=== PATIENT | female | born 1960 | race Caucasian/White ===

== ENCOUNTER → 2017-10-29 | Outpatient (CLI) | payer BC ==
[2017-10-29 14:50] LABS: Free Thyroxine 0.86 ng/dL (0.70-1.60)
[2017-10-29 14:55] LABS: Thyroid Stimulating Hormone 1.29 uIU/mL (0.360-4.800)
== END | disposition home or self-care (01) ==
LOC: LAB 14:21 → LAB SHORT 14:21
PROVIDERS: Hospitalist
DX: R61 Generalized hyperhidrosis (principal)
CPT/HCPCS: 84439; 84443

== ENCOUNTER → 2019-07-04 | Outpatient (CLI) | payer BC | END | disposition home or self-care (01) | LOC: LAB SHORT 13:44 → LAB 13:44 | DX: N39.0 Urinary tract infection, site not specified (principal) | CPT/HCPCS: 87086 ==

== ENCOUNTER → 2022-03-05 | Outpatient (CLI) | payer BC ==
[2022-03-05 15:21] LABS: BASOPHILS ABSOLUTE AUTO 0.05 K/mm3 (0.00-0.23); BASOPHILS PERCENT AUTO 1 % (0-2); EOSINOPHILS ABSOLUTE AUTO 0.08 K/mm3 (0.00-0.68); EOSINOPHILS PERCENT AUTO 1 % (0-6); Hematocrit 38.4 % (33.0-51.0); Hemoglobin 12.4 g/dL (11.5-16.0); IMMATURE GRAN ABSOLUTE AUTO 0.01 K/mm3 (0.00-0.10); IMMATURE GRAN PERCENT AUTO 0 % (0-1); LYMPHOCYTES ABSOLUTE AUTO 1.95 K/mm3 (0.84-5.20); LYMPHOCYTES PERCENT AUTO 35 % (21-46); MONOCYTES PERCENT AUTO 7 % (4-13); Mean Corpuscular HGB Conc 32.3 g/dL (31.5-36.5); Mean Corpuscular Volume 84 fL (80-100); Mean Platelet Volume 10.5 fL (9.1-12.4); NEUTROPHILS ABSOLUTE AUTO 3.04 K/mm3 (1.96-9.15); NEUTROPHILS PERCENT AUTO 55 % (41-73); Platelet Count 357 K/mm3 (150-400); RDW Coefficient Variation 13.7 % (11.7-14.2); RDW Standard Deviation 41.4 fL (35.1-46.3); White Blood Cell Count 5.53 K/mm3 (4.00-11.30)
[2022-03-05 15:39] LABS: Alanine Aminotransfer (ALT/SGP 33 U/L (12-78); Albumin, Blood 4.1 g/dL (3.4-5.0); Albumin/Globulin Ratio 1.2 (0.8-1.8); Alk Phos 73 U/L (50-136); Anion Gap 6 mmol/L (6-16); Aspartate Aminotrans (AST/SGOT 18 U/L (12-37); Bilirubin, Total 0.3 mg/dL (0.1-1.0); Blood Urea Nitrogen 10 mg/dL (8-24); Bun/Creatinine Ratio 12.9 (12.0-20.0); CHOL/HDL RATIO 3.4; CO2, Blood 29 mmol/L (21-32); Calcium, Blood 9.5 mg/dL (8.5-10.1); Chloride, Blood 102 mmol/L (98-108); Cholesterol 203 mg/dL (50-200); Creatinine, Blood 0.77 mg/dL (0.40-1.00); Globulin, Blood 3.4 g/dL (2.2-4.0); Glomerular Filtration Rate 89 (60-); Glucose, Blood 109 mg/dL (70-99); HDL Cholesterol 59 mg/dL (>39); LDL/HDL RATIO 1.9; Low Density Lipoprotein Chol 110 mg/dL (0-110); Potassium, Blood 4.1 mmol/L (3.5-5.5); Sodium, Blood 137 mmol/L (136-145); Total Protein, Blood 7.5 g/dL (6.4-8.2); Triglycerides 172 mg/dL (30-160); Very Low Density Lipoprot Chol 34 mg/dL (6-32)
== END | disposition home or self-care (01) ==
LOC: LAB SHORT 11:35 → LAB 11:35
PROVIDERS: Hospitalist
DX: E78.5 Hyperlipidemia, unspecified (principal); I10 Essential (primary) hypertension
CPT/HCPCS: 80053; 80061; 85025

== ENCOUNTER → 2022-12-15 | Outpatient (CLI) | payer BC ==
[~2022-12-15] MED LIST: DULOXETINE HCL60 M1 PO; HYDHCL25 PO; LORA10ER PO; LOVASTATIN20 MG PO; Neurontin 100100 MG PO; Prinivil10 MG PO
[2022-12-15 19:02] LABS: BASOPHILS ABSOLUTE AUTO 0.03 K/mm3 (0.00-0.23); BASOPHILS PERCENT AUTO 0 % (0-2); EOSINOPHILS ABSOLUTE AUTO 0.09 K/mm3 (0.00-0.68); EOSINOPHILS PERCENT AUTO 1 % (0-6); Hemoglobin 12.7 g/dL (11.5-16.0); IMMATURE GRAN ABSOLUTE AUTO 0.02 K/mm3 (0.00-0.10); IMMATURE GRAN PERCENT AUTO 0 % (0-1); LYMPHOCYTES ABSOLUTE AUTO 2.71 K/mm3 (0.84-5.20); LYMPHOCYTES PERCENT AUTO 37 % (21-46); MONOCYTES PERCENT AUTO 8 % (4-13); Mean Corpuscular HGB Conc 32.6 g/dL (31.5-36.5); Mean Corpuscular Volume 83 fL (80-100); NEUTROPHILS ABSOLUTE AUTO 3.91 K/mm3 (1.96-9.15); NEUTROPHILS PERCENT AUTO 53 % (41-73); Platelet Count 376 K/mm3 (150-400); RDW Coefficient Variation 13.1 % (11.7-14.2); RDW Standard Deviation 39.7 fL (35.1-46.3); Red Blood Cell Count 4.71 M/mm3 (3.80-5.20); White Blood Cell Count 7.36 K/mm3 (4.00-11.30)
[2022-12-15 19:51] LABS: Bun/Creatinine Ratio 17.1 (12.0-20.0); Calcium, Blood 9.7 mg/dL (8.5-10.1); Creatinine, Blood 0.82 mg/dL (0.40-1.00)
== END | disposition home or self-care (01) ==
LOC: LAB 15:54 → LAB SHORT 15:54
PROVIDERS: Hospitalist
DX: R51.9 Headache, unspecified (principal)
CPT/HCPCS: 80048; 85025; 85651

== ENCOUNTER 2022-12-17 09:29 | Emergency (ER) | payer BC ==
[~2022-12-17] VITALS: Ht 165.1 cm; Wt 89.4 kg
[2022-12-17] MEDS ORDERED: LOVASTATIN20 MG PO (09:55)
[2022-12-17] MEDS ORDERED: DULOXETINE HCL60 M1 PO (09:55)
[2022-12-17] MEDS ORDERED: Prinivil10 MG PO (09:56)
[2022-12-17] MEDS ORDERED: LORA10ER PO (10:37)
[2022-12-17 11:54] VITALS: BP 114/75
[2022-12-17] MEDS ORDERED: HYDHCL25 PO (12:48)
[2022-12-17] MEDS ORDERED: Neurontin 100100 MG PO (12:48)
== END 2022-12-17 13:10 | disposition home or self-care (01) ==
LOC: ER 09:29
DX: G43.909 Migraine, unspecified, not intractable, without status migrainosus (principal); M54.2 Cervicalgia; F41.9 Anxiety disorder, unspecified; R41.89 Other symptoms and signs involving cognitive functions and awareness; R00.2 Palpitations; I10 Essential (primary) hypertension; Z88.1 Allergy status to other antibiotic agents; Z91.040 Latex allergy status
CPT/HCPCS: 84443; 93005; 93010; 96374; 96375; 99284-25; A9270; J1200; J1885; J2765

== ENCOUNTER 2023-07-10 06:50 | Day surgery (SDC) | payer BC ==
[~2023-07-10] VITALS: Ht 167.6 cm; Wt 89.5 kg
[~2023-07-10 06:50] MED LIST changes: +ALBU90OI INH; +ALLEGRA ALLERG180 MG PO; +CYCL10; +ERGO400 PO; +FLONASE ALLERG9.9 M2; +GABA300 PO; +SUPHEDRINE SINU PO
[2023-07-10] MEDS ORDERED: propofoL 50 ML IV ONE (07:36)
[2023-07-10] MEDS ORDERED: Lactated Ringer's 1,000 ML IV ONE ×2 (07:36→07:43)
[2023-07-10 09:17] VITALS: BP 143/83
== END 2023-07-10 09:10 | disposition home or self-care (01) ==
LOC: ORSCSDS 06:50
PROVIDERS: Surgery
PROC: 0DJD8ZZ Inspection of Lower Intestinal Tract, Via Natural or Artificial Opening Endoscopic (ICD-10-PCS; principal; 2023-07-10 08:00)
DX: Z12.11 Encounter for screening for malignant neoplasm of colon (principal); J45.909 Unspecified asthma, uncomplicated; I10 Essential (primary) hypertension; E78.5 Hyperlipidemia, unspecified; Z68.32 Body mass index [BMI] 32.0-32.9, adult; Z79.899 Other long term (current) drug therapy
CPT/HCPCS: J2704; J7120

== ENCOUNTER → 2024-01-15 | Outpatient (CLI) | payer BC ==
[2024-01-15 14:39] LABS: Anion Gap 11 mmol/L (3-11); Blood Urea Nitrogen 12 mg/dL (8-24); Bun/Creatinine Ratio 14.4 (12.0-20.0); CHOL/HDL RATIO 2.8; CO2, Blood 26 mmol/L (21-32); Calcium, Blood 9.7 mg/dL (8.5-10.1); Chloride, Blood 107 mmol/L (98-108); Cholesterol 191 mg/dL (50-200); Creatinine, Blood 0.83 mg/dL (0.40-1.00); Glomerular Filtration Rate 80 (60-); Glucose, Blood 123 mg/dL (70-99); HDL Cholesterol 69 mg/dL (>39); LDL/HDL RATIO 1.5; Low Density Lipoprotein Chol 104 mg/dL (0-110); Potassium, Blood 4.7 mmol/L (3.5-5.5); Sodium, Blood 139 mmol/L (136-145); Triglycerides 92 mg/dL (30-160); Very Low Density Lipoprot Chol 18 mg/dL (6-32)
== END ==
LOC: LAB SHORT 12:10 → LAB 12:10
PROVIDERS: Hospitalist
DX: I10 Essential (primary) hypertension (principal); E78.5 Hyperlipidemia, unspecified
CPT/HCPCS: 80048; 80061

== ENCOUNTER → 2025-01-10 | Outpatient (CLI) | payer BC ==
[2025-01-11 00:33] LABS: Anion Gap 8.0 mmol/L (3-11); Blood Urea Nitrogen 13.0 mg/dL (8-24); CO2, Blood 29.0 mmol/L (21-32); Calcium, Blood 9.1 mg/dL (8.5-10.1); Chloride, Blood 101.0 mmol/L (98-108); Creatinine, Blood 0.7 mg/dL (0.40-1.00); Glucose, Blood 96.0 mg/dL (70-99); Potassium, Blood 4.1 mmol/L (3.5-5.5); Sodium, Blood 134.0 mmol/L (136-145)
== END | disposition home or self-care (01) ==
LOC: LAB 12:05 → LAB SHORT 12:05
PROVIDERS: Hospitalist
DX: I10 Essential (primary) hypertension (principal)
CPT/HCPCS: 80048